=== PATIENT | male | born 1985 | race Two or more races ===

== ENCOUNTER 2021-03-04 13:17 | Emergency (ER) | payer SELFPAY ==
[~2021-03-04] VITALS: Ht 175.3 cm; Wt 66.2 kg
[2021-03-04 14:00] LABS: BASOPHILS % (AUTO) 0.2 % (0.0-2.0); EOSINOPHILS % (AUTO) 2.9 % (0.0-6.0); HEMATOCRIT 44 % (39-51); HEMOGLOBIN 14.9 g/dL (13.5-17.5); LYMPHOCYTES # (AUTO) 2.2 /CMM (0.8-4.8); LYMPHOCYTES % (AUTO) 32.4 % (20.0-44.0); MEAN CORPUSCULAR HGB CONC 34 g/dl (31.0-36.0); MEAN CORPUSCULAR VOLUME 89 fL (80-96); MONOCYTES # (AUTO) 0.4 /CMM (0.1-1.30); MONOCYTES % (AUTO) 5.5 % (2.0-12.0); PLATELET COUNT (AUTO) 199 /CMM (150-450); RED BLOOD CELL COUNT(AUTO) 4.91 MIL/uL (4.5-6.0); WHITE BLOOD COUNT (AUTO) 6.8 K/uL (4.3-11.0)
[2021-03-04] MEDS ORDERED: IV NS 0.9% 1,000 ML BAG IV ONE (14:00)
[2021-03-04 14:07] LABS: CALCIUM, SERUM 9.3 mg/dL (8.5-10.1); CARBON DIOXIDE 27 mmol/L (21-32); CHLORIDE 104 mmol/L (98-107); CREATININE 1.2 mg/dL (0.6-1.3); GLUCOSE 101 mg/dL (74-106); POTASSIUM 3.9 mmol/L (3.5-5.1); SODIUM SERUM 139 mmol/L (136-145); UREA NITROGEN, BLOOD 24 mg/dL (7-18)
--- NOTE | 2021-03-04 14:07 | NUR ---
[facility] COVID VACCINE [facility] TO ER BED 7. AAOX4. NOT IN RESP DISTRESS. AMBULATORY. BROUGHT IN FOR A SYNCOPAL EPISODE AFTER RECEIVING COVID VACCINE. PER PT, HE RECEIVED THE VACCINE THE 2 MIN LATER HE PASSED OUT. PT REPORTS THAT HE GET DIZZY IN THE PAST WHENEVER HE IS GETTING A BLOOD DRAWN. MD AT BEDSIDE. AWAITING FOR ORDERS
--- NOTE | 2021-03-04 14:30 | NUR ---
PT PROVIDED WITH FOOD
--- NOTE | 2021-03-04 14:41 | NUR ---
Patient discharged to home in stable condition. Written and verbal after care instructions given. Patient verbalizes understanding of instruction.IV removed. Catheter intact and site benign. Pressure and 4x4 applied to site. No bleeding noted. Pt ambulatory with a steady gait
[2021-03-04 14:42] VITALS: BP 132/80
== END 2021-03-04 14:42 | disposition home or self-care (01) ==
LOC: ER 13:19
DX: R55 Syncope and collapse (principal)
CPT/HCPCS: 36415; 71045-TC; 80048-TC; 84484-TC; 85025-TC; J7030